=== PATIENT | female | born 1985 | race Caucasian/White ===

== ENCOUNTER 2018-08-07 21:16 | Emergency (ER) | payer OTHER, BC ==
[2018-08-08] MEDS: IBUPROFEN 800 MG TAB PO (01:28)
[2018-08-08] MEDS: DIPHTH/TET/ACEL PERTUSS (ADULT) 0.5 ML VIAL IM* (01:29)
[2018-08-08] MEDS: LIDOCAINE 1% (MDV) 10 ML INJ INJ (01:29)
[2018-08-08] MEDS: LIDOCAINE 1% (MPF) 5 ML VIAL INJ (01:45)
== END 2018-08-08 03:02 | disposition home or self-care (01) ==
LOC: FTE 21:16
DX: S61.012A Laceration without foreign body of left thumb without damage to nail, initial encounter (principal); W26.0XXA Contact with knife, initial encounter; Y92.9 Unspecified place or not applicable; Z23 Encounter for immunization
CPT/HCPCS: 12001; 90471; 90715; 99283-25